=== PATIENT | female | born 1955 | race African-American/Black ===

== ENCOUNTER 2022-05-07 07:31 | Inpatient (IN) | payer MEDICARE, OTHER ==
[~2022-05-07] VITALS: Ht 162.6 cm; Wt 98.8 kg
[2022-05-07 08:02] LABS: Basophils # (auto) 0 10 ^3/uL (0-0.2); Basophils % (auto) 0.4 % (0.0-2.0); Eosinophils # (auto) 0.1 10 ^3/uL (0-0.8); Eosinophils % (auto) 1.4 % (0.0-7.0); Hematocrit 41.9 % (36.0-46.0); Hemoglobin 14.4 g/dL (12.2-16.2); Lymphocytes # (auto) 1.1 10 ^3/uL (0.4-5.4); Lymphocytes % (auto) 21.8 % (10.0-50.0); Mean Corpuscular Hemoglobin 31.9 pg (28.0-32.0); Mean Corpuscular Hgb Conc. 34.4 g/dL (32.0-36.0); Mean Corpuscular Volume 92.8 fL (80.0-100.0); Monocytes # (auto) 0.4 10 ^3/uL (0-1.3); Monocytes % (auto) 7.3 % (0.0-12.0); Neutrophils # (auto) 3.5 10 ^3/uL (1.6-8.6); Neutrophils % (auto) 69.1 % (37.0-80.0); Nucleated Red Blood Cells % 0.1 %; Red Blood Cells 4.51 10^6/uL (4.0-5.20)
[2022-05-07 08:22] LABS: Albumin 3.7 g/dL (3.4-5.0); BUN/Creatinine Ratio 12.2; Calcium 8.8 mg/dL (8.5-10.1); Potassium 4.1 mmol/L (3.5-5.1)
[2022-05-07 08:24] LABS: Bilirubin, Total 0.7 mg/dL (0.2-1.0); Total Protein 7.3 g/dL (6.4-8.2)
[2022-05-07] MEDS ORDERED: ASPirin 81 mg TAB PO ONE (08:45)
[2022-05-07] MEDS ORDERED: SODIUM CHLORIDE 0.9% 1,000 ML IV ONE (08:45)
[2022-05-07] MEDS ORDERED: HEPARIN SODIUM (PORCINE) 5000 UNITS/ML 1ML VIAL IV ONE (12:15)
[2022-05-07] MEDS ORDERED: HEPARIN DRIP/D5W 100UNITS/ML 250 ML IV SCH ×2 (12:15→21:00)
[2022-05-07] MEDS ORDERED: DOCUSATE SOD 100 MG CAP PO PRN (12:45)
[2022-05-07] MEDS ORDERED: NITROGLYCERIN 0.4 MG SL TAB SL PRN (12:45)
[2022-05-07] MEDS ORDERED: MORPHINE SULFATE INJ 2 MG/ml SYRG IV PRN (12:45)
[2022-05-07 12:48] LABS: INR 1.07 (0.9-1.15); Partial Thromboplastin Time 27.1 sec (24.6-33.4)
[2022-05-07] MEDS: MORPHINE SULFATE INJ 2 MG/ml SYRG IV PRN (18:03)
[2022-05-07] MEDS: ONDANSETRON HCL 4 MG/2 ML VIAL IV PRN (18:03)
[2022-05-07 19:53] LABS: Partial Thromboplastin Time > 139.0 sec (24.6-33.4)
[2022-05-07 23:01] LABS: Urine WBC None Seen /hpf (0 - 5)
[2022-05-07 23:14] LABS: Urine Bacteria FEW /hpf (None Seen); Urine Blood 1+ /uL (Negative); Urine Mucus FEW (None Seen); Urine Specific Gravity 1.027 (1.001-1.035)
[2022-05-08 03:00] VITALS: BP 103/53
[2022-05-08 03:11] LABS: Basophils # (auto) 0 10 ^3/uL (0-0.2); Basophils % (auto) 0.7 % (0.0-2.0); Eosinophils # (auto) 0.1 10 ^3/uL (0-0.8); Eosinophils % (auto) 1.1 % (0.0-7.0); Hematocrit 39.3 % (36.0-46.0); Hemoglobin 13.3 g/dL (12.2-16.2); Lymphocytes # (auto) 1.4 10 ^3/uL (0.4-5.4); Lymphocytes % (auto) 28.3 % (10.0-50.0); Mean Corpuscular Hemoglobin 31.7 pg (28.0-32.0); Mean Corpuscular Hgb Conc. 33.9 g/dL (32.0-36.0); Mean Corpuscular Volume 93.5 fL (80.0-100.0); Monocytes # (auto) 0.4 10 ^3/uL (0-1.3); Monocytes % (auto) 8.6 % (0.0-12.0); Neutrophils % (auto) 61.3 % (37.0-80.0); Nucleated Red Blood Cells % 0.1 %; Red Cell Distribution Width 13.7 % (11.8-14.3); White Blood Cell 4.9 10^3/uL (4.4-10.8)
[2022-05-08 03:27] LABS: Albumin 3.2 g/dL (3.4-5.0); BUN/Creatinine Ratio 8.1; Calcium 8.7 mg/dL (8.5-10.1)
[2022-05-08 03:30] LABS: Bilirubin, Total 0.6 mg/dL (0.2-1.0); Total Protein 6.9 g/dL (6.4-8.2)
[2022-05-08 03:42] LABS: INR 1.07 (0.9-1.15)
[2022-05-08 03:48] LABS: Partial Thromboplastin Time > 139.0 sec (24.6-33.4)
[2022-05-08 05:00] VITALS: BP 103/53
[2022-05-08] MEDS ORDERED: HEPARIN DRIP/D5W 100UNITS/ML 250 ML IV SCH ×3 (05:00→11:15)
[2022-05-08 08:00] VITALS: BP 123/59
[2022-05-08] MEDS: MORPHINE SULFATE INJ 2 MG/ml SYRG IV PRN (09:15)
[2022-05-08] MEDS: AMIODARONE HCL 200 MG TAB PO SCH ×2 (09:35→21:19)
[2022-05-08] MEDS ORDERED: PANTOPRAZOLE 40 MG/10 ML VIAL INJ IV SCH (10:00)
[2022-05-08] MEDS ORDERED: HEPARIN SODIUM (PORCINE) 5000 UNITS/ML 1ML VIAL IV ONE (11:15)
[2022-05-08 11:34] LABS: INR 1.03 (0.9-1.15); Partial Thromboplastin Time 61.9 sec (24.6-33.4)
[2022-05-08 12:15] LABS: Basophils # (auto) 0 10 ^3/uL (0-0.2); Basophils % (auto) 0.4 % (0.0-2.0); Eosinophils # (auto) 0.1 10 ^3/uL (0-0.8); Eosinophils % (auto) 1.2 % (0.0-7.0); Hematocrit 38.5 % (36.0-46.0); Lymphocytes % (auto) 23.5 % (10.0-50.0); Mean Corpuscular Hemoglobin 31.6 pg (28.0-32.0); Mean Corpuscular Hgb Conc. 33.8 g/dL (32.0-36.0); Mean Corpuscular Volume 93.6 fL (80.0-100.0); Monocytes # (auto) 0.4 10 ^3/uL (0-1.3); Monocytes % (auto) 8.4 % (0.0-12.0); Neutrophils # (auto) 2.9 10 ^3/uL (1.6-8.6); Neutrophils % (auto) 66.5 % (37.0-80.0); Nucleated Red Blood Cells % 0.1 %; Red Blood Cells 4.12 10^6/uL (4.0-5.20); Red Cell Distribution Width 13.9 % (11.8-14.3); White Blood Cell 4.4 10^3/uL (4.4-10.8)
[2022-05-08] MEDS: ONDANSETRON HCL 4 MG/2 ML VIAL IV PRN (12:47)
[2022-05-08 12:51] VITALS: BP 130/80
[2022-05-08 16:56] VITALS: BP 114/70
[2022-05-08 17:53] LABS: INR 1.01 (0.9-1.15); Partial Thromboplastin Time 68.4 sec (24.6-33.4)
[2022-05-08] MEDS ORDERED: ACETAMINOPHEN 500 MG TAB PO PRN (19:00)
[2022-05-08] MEDS ORDERED: PANTOPRAZOLE 40 MG TAB PO ONE (19:00)
[2022-05-08] MEDS: HYDROcodone-ACET 5/325MG TAB PO PRN (21:23)
[2022-05-08 22:00] VITALS: BP 130/68
[2022-05-09 00:11] LABS: INR 1.04 (0.9-1.15)
[2022-05-09 00:14] LABS: Partial Thromboplastin Time 92.5 sec (24.6-33.4)
[2022-05-09] MEDS: HEPARIN DRIP/D5W 100UNITS/ML 250 ML IV SCH ×2 (01:30→10:26)
[2022-05-09 05:00] VITALS: BP 112/54
[2022-05-09 05:30] LABS: Basophils # (auto) 0 10 ^3/uL (0-0.2); Basophils % (auto) 0.6 % (0.0-2.0); Eosinophils # (auto) 0.1 10 ^3/uL (0-0.8); Eosinophils % (auto) 1.6 % (0.0-7.0); Hematocrit 37.8 % (36.0-46.0); Hemoglobin 12.8 g/dL (12.2-16.2); Lymphocytes # (auto) 1.2 10 ^3/uL (0.4-5.4); Lymphocytes % (auto) 31.2 % (10.0-50.0); Mean Corpuscular Hemoglobin 31.8 pg (28.0-32.0); Mean Corpuscular Hgb Conc. 33.9 g/dL (32.0-36.0); Mean Corpuscular Volume 93.8 fL (80.0-100.0); Monocytes # (auto) 0.4 10 ^3/uL (0-1.3); Monocytes % (auto) 9.8 % (0.0-12.0); Neutrophils # (auto) 2.3 10 ^3/uL (1.6-8.6); Neutrophils % (auto) 56.8 % (37.0-80.0); Red Blood Cells 4.03 10^6/uL (4.0-5.20); Red Cell Distribution Width 13.8 % (11.8-14.3)
[2022-05-09 05:41] LABS: BUN/Creatinine Ratio 10.1; Potassium 3.7 mmol/L (3.5-5.1)
[2022-05-09 08:00] VITALS: BP 108/53
[2022-05-09 08:07] LABS: Partial Thromboplastin Time 62.9 sec (24.6-33.4)
[2022-05-09] MEDS: AMIODARONE HCL 200 MG TAB PO SCH ×2 (10:00→21:52)
[2022-05-09] MEDS: PANTOPRAZOLE 40 MG TAB PO SCH (10:33)
[2022-05-09 12:00] VITALS: BP 110/50
[2022-05-09] MEDS ORDERED: IOHEXOL 300 MG/ML 100ML BOTTLE IJ ONE (12:29)
[2022-05-09 15:22] LABS: INR 0.98 (0.9-1.15); Partial Thromboplastin Time 40.4 sec (24.6-33.4)
[2022-05-09] MEDS: SALINE 0.65 % NASAL SPRAY 45ML BOTTLE EACHNOSTRI SCH ×3 (15:39→21:57)
[2022-05-09 16:00] VITALS: BP 99/63
[2022-05-09] MEDS ORDERED: HEPARIN DRIP/D5W 100UNITS/ML 250 ML IV SCH (16:45)
[2022-05-09 22:00] VITALS: BP 115/49
[2022-05-09 22:58] LABS: INR 1.02 (0.9-1.15)
[2022-05-09 23:09] LABS: Partial Thromboplastin Time > 139.0 sec (24.6-33.4)
[2022-05-10] MEDS: HEPARIN DRIP/D5W 100UNITS/ML 250 ML IV SCH ×4 (00:09→20:31)
[2022-05-10 05:00] VITALS: BP 128/71
[2022-05-10 06:54] LABS: INR 1.06 (0.9-1.15)
[2022-05-10 06:55] LABS: BUN/Creatinine Ratio 10.9; Calcium 8.5 mg/dL (8.5-10.1)
[2022-05-10 06:57] LABS: Partial Thromboplastin Time 125.9 sec (24.6-33.4)
[2022-05-10] MEDS: SALINE 0.65 % NASAL SPRAY 45ML BOTTLE EACHNOSTRI SCH ×4 (06:57→21:15)
[2022-05-10 08:00] VITALS: BP 124/74
[2022-05-10 08:50] VITALS: BP 127/74
[2022-05-10] MEDS: AMIODARONE HCL 200 MG TAB PO SCH ×2 (10:00→22:00)
[2022-05-10] MEDS: PANTOPRAZOLE 40 MG TAB PO SCH (10:01)
[2022-05-10 10:40] LABS: Basophils # (auto) 0 10 ^3/uL (0-0.2); Basophils % (auto) 0.5 % (0.0-2.0); Eosinophils # (auto) 0.1 10 ^3/uL (0-0.8); Eosinophils % (auto) 1.5 % (0.0-7.0); Hemoglobin 12.5 g/dL (12.2-16.2); Lymphocytes % (auto) 19.2 % (10.0-50.0); Mean Corpuscular Hemoglobin 31.2 pg (28.0-32.0); Mean Corpuscular Hgb Conc. 32.9 g/dL (32.0-36.0); Mean Corpuscular Volume 94.9 fL (80.0-100.0); Monocytes # (auto) 0.5 10 ^3/uL (0-1.3); Monocytes % (auto) 9.1 % (0.0-12.0); Neutrophils # (auto) 3.7 10 ^3/uL (1.6-8.6); Neutrophils % (auto) 69.7 % (37.0-80.0); Nucleated Red Blood Cells % 0.1 %; Red Blood Cells 4.01 10^6/uL (4.0-5.20); Red Cell Distribution Width 13.7 % (11.8-14.3); White Blood Cell 5.3 10^3/uL (4.4-10.8)
[2022-05-10 13:00] VITALS: BP 126/53
[2022-05-10 14:38] LABS: INR 1.05 (0.9-1.15); Partial Thromboplastin Time 53.6 sec (24.6-33.4)
[2022-05-10] MEDS: HYDROcodone-ACET 5/325MG TAB PO PRN (15:10)
[2022-05-10 17:00] VITALS: BP 118/63
[2022-05-10] MEDS ORDERED: cefTRIAXone 1GM/50ML D5W 50 ML IV ONE (17:00)
[2022-05-10 20:21] LABS: INR 1.03 (0.9-1.15); Partial Thromboplastin Time 45.8 sec (24.6-33.4)
[2022-05-10 22:00] VITALS: BP 124/73
[2022-05-10] MEDS: MORPHINE SULFATE INJ 2 MG/ml SYRG IV PRN (22:05)
[2022-05-10] MEDS: ONDANSETRON HCL 4 MG/2 ML VIAL IV PRN (22:05)
[2022-05-11 02:28] LABS: INR 1.03 (0.9-1.15); Partial Thromboplastin Time 62.3 sec (24.6-33.4)
[2022-05-11 05:00] VITALS: BP 119/66
[2022-05-11] MEDS: SALINE 0.65 % NASAL SPRAY 45ML BOTTLE EACHNOSTRI SCH ×4 (06:58→21:07)
[2022-05-11 08:00] VITALS: BP 118/65
[2022-05-11 09:00] VITALS: BP 118/65
[2022-05-11] MEDS: PANTOPRAZOLE 40 MG TAB PO SCH (09:30)
[2022-05-11] MEDS: AMIODARONE HCL 200 MG TAB PO SCH ×2 (09:30→21:07)
[2022-05-11] MEDS: cefTRIAXone 1GM/50ML D5W 50 ML IV SCH (09:30)
[2022-05-11 10:05] LABS: Basophils # (auto) 0 10 ^3/uL (0-0.2); Basophils % (auto) 0.4 % (0.0-2.0); Eosinophils # (auto) 0 10 ^3/uL (0-0.8); Eosinophils % (auto) 0.2 % (0.0-7.0); Hematocrit 38.9 % (36.0-46.0); Hemoglobin 13.1 g/dL (12.2-16.2); Lymphocytes # (auto) 0.8 10 ^3/uL (0.4-5.4); Lymphocytes % (auto) 13.8 % (10.0-50.0); Mean Corpuscular Hemoglobin 31.6 pg (28.0-32.0); Mean Corpuscular Hgb Conc. 33.8 g/dL (32.0-36.0); Mean Corpuscular Volume 93.5 fL (80.0-100.0); Monocytes # (auto) 0.6 10 ^3/uL (0-1.3); Monocytes % (auto) 11.1 % (0.0-12.0); Neutrophils # (auto) 4.3 10 ^3/uL (1.6-8.6); Neutrophils % (auto) 74.5 % (37.0-80.0); Red Blood Cells 4.16 10^6/uL (4.0-5.20); Red Cell Distribution Width 13.9 % (11.8-14.3); White Blood Cell 5.8 10^3/uL (4.4-10.8)
[2022-05-11 10:32] LABS: Partial Thromboplastin Time 42.1 sec (24.6-33.4)
[2022-05-11] MEDS: HEPARIN DRIP/D5W 100UNITS/ML 250 ML IV SCH (11:02)
[2022-05-11] MEDS: MORPHINE SULFATE INJ 2 MG/ml SYRG IV PRN ×3 (12:18→21:43)
[2022-05-11] MEDS: ONDANSETRON HCL 4 MG/2 ML VIAL IV PRN ×2 (12:19→21:46)
[2022-05-11] MEDS ORDERED: LACTULOSE 20Gm/30ML SOLN PO ONE (14:30)
[2022-05-11] MEDS ORDERED: MORPHINE SULFATE INJ 2 MG/ml SYRG IV PRN (15:00)
[2022-05-11 15:29] LABS: INR 1.03 (0.9-1.15); Partial Thromboplastin Time 57.5 sec (24.6-33.4)
[2022-05-11 17:00] VITALS: BP 110/54
[2022-05-11 22:00] VITALS: BP 127/67
[2022-05-11 22:35] LABS: INR 1.05 (0.9-1.15)
[2022-05-11 22:37] LABS: Partial Thromboplastin Time 71.7 sec (24.6-33.4)
[2022-05-12] MEDS: ONDANSETRON HCL 4 MG/2 ML VIAL IV PRN (01:50)
[2022-05-12] MEDS: MORPHINE SULFATE INJ 2 MG/ml SYRG IV PRN (01:51)
[2022-05-12 03:49] LABS: INR 1.05 (0.9-1.15)
[2022-05-12 03:53] LABS: Partial Thromboplastin Time 80.7 sec (24.6-33.4)
[2022-05-12] MEDS: HEPARIN DRIP/D5W 100UNITS/ML 250 ML IV SCH (03:54)
[2022-05-12 05:00] VITALS: BP 137/49
[2022-05-12] MEDS: SALINE 0.65 % NASAL SPRAY 45ML BOTTLE EACHNOSTRI SCH ×4 (05:13→21:04)
[2022-05-12 08:52] VITALS: BP 91/70
[2022-05-12] MEDS: AMIODARONE HCL 200 MG TAB PO SCH ×2 (10:02→21:05)
[2022-05-12] MEDS: PANTOPRAZOLE 40 MG TAB PO SCH (10:03)
[2022-05-12] MEDS: HYDROcodone-ACET 5/325MG TAB PO PRN ×2 (10:03→21:05)
[2022-05-12] MEDS: cefTRIAXone 1GM/50ML D5W 50 ML IV SCH (10:03)
[2022-05-12 11:20] LABS: INR 1.04 (0.9-1.15); Partial Thromboplastin Time 47.6 sec (24.6-33.4)
[2022-05-12] MEDS ORDERED: HEPARIN DRIP/D5W 100UNITS/ML 250 ML IV SCH (12:00)
[2022-05-12 12:25] LABS: Basophils # (auto) 0 10 ^3/uL (0-0.2); Basophils % (auto) 0.3 % (0.0-2.0); Eosinophils # (auto) 0 10 ^3/uL (0-0.8); Eosinophils % (auto) 0.1 % (0.0-7.0); Hematocrit 36.8 % (36.0-46.0); Hemoglobin 12.5 g/dL (12.2-16.2); Lymphocytes # (auto) 0.5 10 ^3/uL (0.4-5.4); Lymphocytes % (auto) 6.6 % (10.0-50.0); Mean Corpuscular Hemoglobin 31.6 pg (28.0-32.0); Monocytes # (auto) 1.1 10 ^3/uL (0-1.3); Monocytes % (auto) 14.5 % (0.0-12.0); Neutrophils # (auto) 6.2 10 ^3/uL (1.6-8.6); Neutrophils % (auto) 78.5 % (37.0-80.0); Red Blood Cells 3.95 10^6/uL (4.0-5.20); Red Cell Distribution Width 13.7 % (11.8-14.3); White Blood Cell 7.9 10^3/uL (4.4-10.8)
[2022-05-12 13:00] VITALS: BP 118/50
[2022-05-12 16:49] VITALS: BP 107/62
[2022-05-12 18:59] LABS: INR 1.07 (0.9-1.15); Partial Thromboplastin Time 31.9 sec (24.6-33.4)
[2022-05-12] MEDS: APIXABAN 5 MG TAB PO SCH (21:05)
[2022-05-12 22:00] VITALS: BP 117/65
[2022-05-13] MEDS: HYDROcodone-ACET 5/325MG TAB PO PRN (04:21)
[2022-05-13 05:00] VITALS: BP 112/57
[2022-05-13] MEDS: SALINE 0.65 % NASAL SPRAY 45ML BOTTLE EACHNOSTRI SCH ×2 (05:06→12:25)
[2022-05-13 08:00] VITALS: BP 104/47
[2022-05-13 08:30] VITALS: BP 104/47
[2022-05-13] MEDS: APIXABAN 5 MG TAB PO SCH (08:50)
[2022-05-13] MEDS: PANTOPRAZOLE 40 MG TAB PO SCH (08:51)
[2022-05-13] MEDS: cefTRIAXone 1GM/50ML D5W 50 ML IV SCH (08:52)
[2022-05-13] MEDS: AMIODARONE HCL 200 MG TAB PO SCH (08:52)
[2022-05-13] MEDS ORDERED: AMIO200T33 PO (12:13)
[2022-05-13] MEDS ORDERED: LEVO500T31 PO (12:13)
[2022-05-13] MEDS ORDERED: APIX5TAB PO (12:13)
[2022-05-13 12:30] VITALS: BP 121/60
[2022-05-13 12:57] VITALS: BP 130/92
[2022-05-13 16:30] VITALS: BP 103/65
[2022-05-20] MEDS ORDERED: APIXABAN 5 MG TAB PO SCH (10:00)
== END 2022-05-13 17:49 | disposition home or self-care (01) | DRG 175 ==
LOC: ER 07:31 → TELE 13:57 → TELE-WESTW 05-08 02:20
PROVIDERS: ADMIT Nurse Practitioner Family; ATTEND Internal Medicine
DX: I26.99 Other pulmonary embolism without acute cor pulmonale (principal); J96.01 Acute respiratory failure with hypoxia; D68.69 Other thrombophilia; N39.0 Urinary tract infection, site not specified; I10 Essential (primary) hypertension; Z20.822 Contact with and (suspected) exposure to COVID-19; I48.91 Unspecified atrial fibrillation; E04.2 Nontoxic multinodular goiter; N28.89 Other specified disorders of kidney and ureter; E66.9 Obesity, unspecified; Z68.36 Body mass index [BMI] 36.0-36.9, adult; Z85.3 Personal history of malignant neoplasm of breast; Z90.49 Acquired absence of other specified parts of digestive tract; Z90.710 Acquired absence of both cervix and uterus
CPT/HCPCS: 36415; 36600; 70450; 71046; 71275; 74178; 76536; 80048; 80053; 81001; 82805; 82962; 83735; 83880; 84443; 84484; 85025; 85379; 85610; 85730; 86850; 86900; 86901; 87086; 87426; 87804; 93005; 93306; 93970; 96361; 96365; 96375; 97163; C9113; G0378; J0696; J2405

== ENCOUNTER 2025-07-08 11:03 | Emergency (ER) | payer MEDICARE, BC ==
[~2025-07-08] VITALS: Ht 162.6 cm; Wt 98.2 kg
[~2025-07-08 11:03] MED LIST: AMIO200T33 PO; APIX5TAB PO; LEVO500T31 PO
[2025-07-08 12:15] VITALS: BP 146/96; PULSE 70; RESP 18; TEMP 98.6; O2SAT 97
--- NOTE | 2025-07-08 12:30 | ED.PDOC ---
Back pain HPI HPI Comments 70 y/o F, with PMHx of chronic back pain and HTN presents to the ED for CC of back pain. Patient states, she has been experiencing lower lumbar back pain that "shoots" down her bilateral legs onset, x3days ago. Patient further reports, associated symptoms of constipation; endorses LBM to have been as of today (07/08/25). Patient denies any trauma, injury, or fall. No other symptoms or modifying factors are present at this time. Chief Complaint: Back Pain Time Seen by MD: 12:20 Primary Care Provider: HIREN Reviewed Notes: Nurses Notes, Medications, Allergies Allergies: Coded Allergies: Sulfa Antibiotics (Verified Allergy, Unknown, 05/07/22) Home Meds Active Scripts Apixaban Base (ELIQUIS) 5 Mg Tab, 5 MG PO BID for 30 Days, #60 TAB 3 Refills Prov:SANTOS TOLEDO MD 05/13/22 Apixaban Base (ELIQUIS) 5 Mg Tab, 10 MG PO BID for 7 Days, #14 TAB 10MG BID X 7 DAYS THEN 5MG PO BID FOR AT LEAST 6 MONTHS FOR DVT/PE TREATMENT Prov:SANTOS TOLEDO MD 05/13/22 Amiodarone Hcl (Amiodarone Hcl) 200 Mg Tab, 1 TAB PO DAILY for 30 Days, #30 TAB 1 Refill Prov:SANTOS TOLEDO MD 05/13/22 Levofloxacin (Levaquin) 500 Mg Tab, 500 MG PO DAILY for 7 Days, #7 TAB Prov:SANTOS TOLEDO MD 05/13/22 Information Source: Patient Mode of Arrival: Wheelchair Timing: Days Duration: Since onset Location of Back pain: (B) Lumbar Severity: Moderate Prehospital treatment: None Onset: Spontaneous History of: Chronic Back Pain Associated signs and symptoms: None Past Medical History PAST MEDICAL HISTORY: Cancer, HTN 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: Denies all 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 Hx Family History Family History: Unknown Social History Smoker: Non-Smoker Alcohol: Denies ETOH Use Drugs: Denies Drug Use Lives In: Home Constitutional: denies: chills, diaphoresis, fatigue, fever, malaise, sweats, weakness, others EENTM: denies: blurred vision, double vision, ear bleeding, ear discharge, ear drainage, ear pain, ear ringing, eye pain, eye redness, hearing loss, mouth pain, mouth swelling, nasal discharge, nose bleeding, nose congestion, nose pain, photophobia, tearing, throat pain, throat swelling, voice changes, others Respiratory: denies: cough, hemoptysis, orthopnea, SOB at rest, shortness of breath, SOB with excertion, stridor, wheezing, others Cardiovascular: denies: chest pain, dizzy spells, diaphoresis, Dyspnea on exertion, edema, irregular heart beat, left arm pain, lightheadedness, palpitations, PND, syncope, others Gastrointestinal: reports: constipated; denies: abdomen distended, abdominal pain, blood streaked bowels, diarrhea, dysphagia, difficulty swallowing, hematemesis, melena, nausea, poor appetite, poor fluid intake, rectal bleeding, rectal pain, vomiting, others Genitourinary: denies: abnormal vagina bleeding, burning, dyspareunia, dysuria, flank pain, frequency, hematuria, incontinence, pain, , vagina discharge, urgency, others Neurological: denies: dizziness, fainting, headache, left sided numbness, left sided weakness, numbness, paresthesia, pre-existing deficit, right sided numbness, right sided weakness, seizure, speech problems, tingling, tremors, weakness, others Musculoskeletal: reports: back pain; denies: gout, joint pain, joint swelling, muscle pain, muscle stiffness, neck pain, others Integumetry: denies: bruises, change in color, change in hair/nails, dryness, laceration, lesions, lumps, rash, wounds, others Allergic/Immunocompromised: denies: Difficulty Healing, Frequent Infections, Hives, Itching, others Hematologic/Lymphatic: denies: anemia, blood clots, easy bleeding, easy bruising, swollen glands, others Endocrine: denies: excessive hunger, excessive sweating, excessive thirst, excessive urination, flushing, intolerance to cold, intolerance to heat, u nexplained weight gain, unexplained weight loss, others Psychiatric: denies: anxiety, bipolar disorder, depression, hopeless, panic disorder, schizophrenia, sleepless, suicidal, others All Other Systems: Reviewed and Negative Physical Exam General Appearance: Moderate Distress HEENT: Normal ENT Inspection, PERRL/EOMI Neck: Full Range of Motion, Non-Tender, Normal, Normal Inspection Respiratory: Chest Non-Tender, Lungs Clear, No Accessory Muscle Use, No Respiratory Distress, Normal Breath Sounds Cardiovascular: No Edema, No JVD, No Murmur, No Gallop, Normal Peripheral Pulses, Regular Rate/Rhythm Breast Exam: Deferred Gastrointestinal: No Organomegaly, Non Tender, No Pulsatile Mass, Normal Bowel Sounds, Soft, Other Genitalia: Deferred Pelvic: Deferred Rectal: Deferred Extremities: No calf tenderness, Normal capillary refill, Normal inspection, Normal range of motion, Non-tender, No pedal edema Musculoskeletal : Location: Bilateral Extremity Location: Back Apperance: Limited ROM, Tenderness: Moderate Neurologic: Alert, economic adviser II-XII nml as Tested, No Motor Deficits, Normal Affect, Normal Mood, No Sensory Deficits Cerebellar Function: Normal Reflexes: Normal Skin: Dry, Normal Color, Warm Peripheral Pulses: 1+ carotid (R) Lymphatic: No Adenopathy Was a procedure done? Was a procedure done?: No Back Pain Differential Dx Differential Diagnosis: Bowel Obstruction, DJD, Musculoskeletal Pain, Strain X-Ray, Labs, Meds, VS Vital Signs Date Time Temp Pulse Resp B/P (MAP) Pulse Ox O2 Delivery O2 Flow Rate FiO2 07/08/25 12:15 98.6 70 18 146/96 (113) 97 98.6 07/08/25 11:05 97.6 70 18 146/90 97 97.6 Current Medications Medications (Trade) Dose Ordered Sig/Clem Route Start Time Stop Time Status Last Admin Ketorolac Tromethamine (Toradol Injection) 60 mg ONCE ONCE IM 07/08/25 12:30 07/08/25 12:31 DC 07/08/25 12:34 Acetaminophen (Tylenol Tablet) 650 mg ONCE ONCE PO 07/08/25 12:30 07/08/25 12:31 DC 07/08/25 12:34 X-Ray, Labs, Meds, VS Comment course in the fast track eventful Patient came in complaining of severe low back pain with a history of chronic back pain and a blood pressure 146/90 she is also constipated Patient we will be discharged home with medication and she will need to follow u p with her doctors Time of 1ST Reevaluation: 12:50 Reevaluation 1ST: Unchanged Time of 2ND Reevaluation: 12:42 Reevaluation 2ND: Unchanged Consultation: PCP Patient Education/Counseling: Diagnosis, Treatment, Prognosis, Need For Follow Up Family Education/Counseling: Diagnosis, Treatment, Prognosis, Need For Follow Up, No Family Present SEPSIS Sepsis Screen Date sepsis recognized/suspect: Jul 08, 2025 Time Sepsis recognized/suspect: 1107 Recent Procedure: No On Antibiotic Therapy: No Respiratory Rate >20: No Heart Rate >90: No Temp<36 C (96.8 F) or >38.3 C: No SBP <90 or MAP <65 mmHG: No New Acute Mental Status Change: No Is the patient on CPAP, BIPAP,: No Vital Signs Date Time Temp Pulse Resp B/P (MAP) Pulse Ox O2 Delivery O2 Flow Rate FiO2 07/08/25 12:15 98.6 70 18 146/96 (113) 97 98.6 07/08/25 11:05 97.6 70 18 146/90 97 97.6 Medications Medications Dose Ordered Sig/Clem Route Start Time Stop Time Status Last Admin Dose Admin Acetaminophen 650 mg ONCE ONCE PO 07/08/25 12:30 07/08/25 12:31 DC 07/08/25 12:34 Ketorolac Tromethamine 60 mg ONCE ONCE IM 07/08/25 12:30 07/08/25 12:31 DC 07/08/25 12:34 Departure 1 Departure Time of Disposition: 12:43 Impression: Primary Impression: Lumbar radiculopathy Additional Impressions: Musculoskeletal pain Constipation by delayed colonic transit Disposition: 01 HOME / SELF CARE / HOMELESS Condition: Fair Additional Instructions: Local heat and then follow up with your PCP e-Prescriptions Acetaminophen (Acetaminophen Extra Stren) 500 Mg Tab 500 MG PO TID for 10 Days, #30 TAB Prov: ARON GAY MD 07/08/25 Naproxen (Naproxen) 375 Mg Tab 375 MG PO BID PRN for 10 Days, #20 TAB Prov: ARON GAY MD 07/08/25 Discharged With: Self Critical Care Note Critical Care Time?: No Stability Stability form required: No Heart Score Heart Score: Heart Score Response (Comments) Value History N/A 0 EKG N/A 0 Age >65 2 Risk Factors 1 or 2 risk factors 1 Troponin N/A 0 Total 3 I personally scribed for ARON GAY MD ([email or web address]) on 07/08/25 at 12:30. Electronically submitted by Roseanna Landin ([email or web address]). ARON GAY MD Jul 08, 2025 12:30
[2025-07-08] MEDS: ACETAMINOPHEN 325 MG TAB PO ONE (12:34)
[2025-07-08] MEDS: KETOROLAC TROMETH 60MG/2ML VIAL IM ONE (12:34)
[2025-07-08] MEDS ORDERED: NAPR-957 PO (12:47)
[2025-07-08] MEDS ORDERED: ACET-6 PO (12:47)
== END 2025-07-08 12:54 | disposition home or self-care (01) ==
LOC: ER 11:03
DX: M54.16 Radiculopathy, lumbar region (principal); M79.18 Myalgia, other site; K59.01 Slow transit constipation; I10 Essential (primary) hypertension; Z90.710 Acquired absence of both cervix and uterus; Z88.2 Allergy status to sulfonamides
CPT/HCPCS: 96372; 99283; J1885